=== PATIENT | female | born 1980 | race Caucasian/White ===

== ENCOUNTER 2017-05-17 09:25 | Emergency (ER) | payer BC ==
[2017-05-17 10:03] VITALS: BP 109/69
--- NOTE | 2017-05-17 10:39 | UC ---
UC General HPI - HPI Summary HPI Summary: pt c/o 2 days hx nausea, dry heaves, fever/chills, bodyaches, sore throat and congestion. no sob or abd pain. - History of Current Complaint Chief Complaint: UCGeneralIllness Stated Complaint: flu symptoms Time Seen by Provider: 05/17/17 10:18 Hx Obtained From: Patient Hx Last Menstrual Period: 05/11/17 Onset/Duration: Sudden Onset Pain Intensity: 4 Associated Signs & Symptoms: Positive: Cough, Fever, Headache, Vomiting. Negative: Diarrhea, Dysuria, SOB - Allergy/Home Medications Allergies/Adverse Reactions: Allergies Allergy/AdvReac Type Severity Reaction Status Date / Time erythromycin base Allergy Vomiting Verified 05/17/17 09:54 latex Allergy Unknown Verified 05/17/17 09:54 Reaction Details Home Medications: Home Medications Acetaminophen [Pain Relief] 500 mg PO 05/17/17 [History] Ibuprofen 600 mg PO 05/17/17 [History] Omeprazole 40 mg PO 05/17/17 [History] PMH/Surg Hx/FS Hx/Imm Hx GI/ History: Gastroesophageal Reflux - Surgical History Surgical History: Yes Surgery Procedure, Year, and Place: laparoscopy, right knee. BX LEFT BREAST. ABD LAPAROSCOPY - Family History Known Family History: Positive: None - Social History Lives: With Family Alcohol Use: Occasionally Substance Use Type: None Smoking Status (MU): Heavy Every Day Tobacco Smoker Type: Cigarettes Amount Used/How Often: 1/2PPD Length of Time of Smoking/Using Tobacco: 4-5 years Have You Smoked in the Last Year: No When Did the Patient Quit Smoking/Using Tobacco: 10 years Household Exposure Type: Cigarettes - Immunization History Vaccination Up to Date: Yes Review of Systems Constitutional: Fever, Chills, Fatigue Skin: Negative Eyes: Negative ENT: Sore Throat, Nasal Discharge Respiratory: Cough Cardiovascular: Negative Gastrointestinal: Vomiting, Nausea Genitourinary: Negative Motor: Negative Neurovascular: Negative Musculoskeletal: Myalgia Neurological: Negative Psychological: Negative Is Patient Immunocompromised?: No All Other Systems Reviewed And Are Negative: Yes Physical Exam Triage Information Reviewed: Yes Appearance: Ill-Appearing Vital Signs: Initial Vital Signs Temp 100.1 F 05/17/17 09:56 Pulse 79 05/17/17 09:56 Resp 16 05/17/17 09:56 BP 109/69 05/17/17 09:56 Pulse Ox 99 05/17/17 09:56 Vital Signs Reviewed: Yes Eyes: Positive: Conjunctiva Clear ENT: Positive: Pharyngeal erythema, TMs normal, Uvula midline. Negative: Nasal congestion, Nasal drainage, Tonsillar swelling, Tonsillar exudate, Trismus, Muffled voice Neck: Positive: Supple, Nontender, Enlarged Nodes @ - peritonsilar Respiratory: Positive: Lungs clear, Normal breath sounds, No respiratory distress Cardiovascular: Positive: RRR, No Murmur, Pulses Normal Abdomen Description: Positive: Nontender, No Organomegaly, Soft Bowel Sounds: Positive: Present Musculoskeletal: Positive: No Edema Neurological: Positive: Alert Psychological: Positive: Age Appropriate Behavior Skin Exam: Normal Diagnostics - Laboratory Diagnostic Studies Completed/Ordered: rapid strep=neg, flu B + Course/Dx - Course Course Of Treatment: Influenza B + thus will tx tamiflu - Differential Dx - Multi-Symptom Provider Diagnoses: Influenza B Discharge - Discharge Plan Condition: Stable Disposition: HOME Prescriptions: Oseltamivir Phosphate [Tamiflu] 75 mg PO BID 5 Days #10 capsule Patient Education Materials: Influenza (ED) Forms: *Work Release Additional Instructions: FOLLOW UP [facility] WITH YOUR DOCTOR IN 7 DAYS FOR A RECHECK OR SOONER IF WORSE.
== END 2017-05-17 11:37 | disposition home or self-care (01) ==
LOC: UCCORT 09:25
DX: J10.1 Influenza due to other identified influenza virus with other respiratory manifestations (principal); F17.210 Nicotine dependence, cigarettes, uncomplicated
CPT/HCPCS: 87502; 87651; 99212; G0463

== ENCOUNTER 2017-08-09 15:06 | Emergency (ER) | payer BC ==
[2017-08-09 20:24] LABS: ABS Basophils 0.1 10^3/ul (0-0.2); ABS Eosinophils 0.4 10^3/ul (0-0.6); ABS Lymphocytes 1.7 10^3/ul (1.0-4.8); ABS Monocytes 0.7 10^3/ul (0-0.8); ABS Neutrophils 6.1 10^3/ul (1.5-7.7); ABS Nucleated RBC 0 10^3/ul; Eosinophil % 4.2 % (0-6); Hematocrit 39 % (35-47); Hemoglobin 13.3 g/dl (12.0-16.0); Lymphocyte % 19.3 % (25-47); Mean Corpuscular HGB Conc 34 g/dl (31-36); Mean Corpuscular Hemoglobin 30 pg (27-31); Mean Corpuscular Volume 89 fL (80-97); Mean Platelet Volume 8.2 um3 (7.4-10.4); Nucleated Red Blood Cells % 0; Platelet Count 279 10^3/ul (150-450); Red Cell Distribution Width 13 % (10.5-15)
[2017-08-09 20:39] LABS: INR 1.02 (0.77-1.02)
[2017-08-09 20:45] LABS: EGFR Non-African American 106.3 (>60)
[2017-08-09] MEDS ORDERED: Iohexol 350* (CONTRAST) 500 ML MDV IV ONE (21:06)
--- NOTE | 2017-08-09 21:59 | RAD ---
INDICATION: Right-sided weakness COMPARISON: None TECHNIQUE: Axial source images were acquired with coronal and sagittal reconstructions. CT angiographic technique was utilized with injection of 80 mL Omnipaque 300. FINDINGS: Aortic arch: There are no CT angiogram abnormalities of the arch or the great vessels arising from the arch. Right carotid: The common carotid artery, carotid bifurcation, extracranial portions of the internal carotid artery, carotid artery at the skull base, carotid siphon, and carotid termination appear normal. Left carotid:The common carotid artery, carotid bifurcation, extracranial portions of the internal carotid artery, carotid artery at the skull base, carotid siphon, and carotid termination appear normal. Right middle and anterior cerebral arteries: There are no CT angiographic abnormalities of the middle or anterior cerebral arteries. Left middle and anterior cerebral arteries: There are no CT angiographic abnormalities of the middle or anterior cerebral arteries Right vertebral: The CT angiographic appearance of the vertebral artery is normal. Left vertebral: The CT angiographic appearance of the vertebral artery is normal. Basilar artery: The basilar artery and basilar tip appear normal. Posterior cerebral arteries: The distal distribution of the right and left posterior cerebral arteries is normal. [place]: The CT angiographic appearance of the [place] is normal. Source images show no evidence of mass or adenopathy within the neck. There are no focal brain parenchymal abnormalities or abnormal areas of enhancement. IMPRESSION: NO CT ANGIOGRAPHIC ABNORMALITIES CPT II Codes: 3100F RS
[2017-08-09 23:12] VITALS: BP 121/74
[2017-08-09 23:35] LABS: Urine Appearance Cloudy; Urine Blood 1+ (Negative); Urine Color Yellow; Urine Ketones 1+ (Negative); Urine Protein Negative (Negative); Urine Specific Gravity 1.017 (1.010-1.030); Urine Urobilinogen Negative (Negative)
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
== END 2017-08-09 23:11 | disposition home or self-care (01) ==
LOC: ED 15:06
DX: R53.1 Weakness (principal); R51 Headache; M54.2 Cervicalgia; F17.210 Nicotine dependence, cigarettes, uncomplicated; Z88.3 Allergy status to other anti-infective agents
CPT/HCPCS: 36415; 70496; 70498; 80053; 81003; 81015; 83605; 84484; 84702; 85025; 85610; 85730; 86618; 86850; 86900; 86901; 87086; 93005; 99283; Q9967

== ENCOUNTER 2017-08-12 12:01 | Observation (INO) | payer BC ==
[2017-08-12] MEDS ORDERED: Ibuprofen TAB* 600 MG PO PRN (13:32)
[2017-08-12] MEDS ORDERED: PROCHLORPERAZINE INJ 5 MG/ML 2 ML VIAL IV PRN (13:33)
[2017-08-12] MEDS ORDERED: Acetaminophen TAB* 325 MG PO PRN (13:33)
[2017-08-12] MEDS ORDERED: traMADol TAB* 50 MG PO PRN (13:37)
[2017-08-12 14:46] LABS: EGFR Non-African American 112.5 (>60)
[2017-08-12] MEDS ORDERED: Gadoteridol* (CONTRAST) 279.3 MG/ML 10 ML IV ONE (16:03)
--- NOTE | 2017-08-12 16:43 | HP ---
CC: Dr. Jaclyn Fairchild; Dr. Hartman.* HISTORY AND PHYSICAL: DATE OF ADMISSION: 08/12/17 TIME OF EVALUATION: 12:50 p.m. PRIMARY CARE PROVIDER: Dr. Jaclyn Fairchild. CONSULTING NEUROLOGIST: Dr. Hartman. CHIEF COMPLAINT: Right-sided weakness. 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 Hartman's office for direct admission for workup of right-sided weakness. The patient states that on Mother's Day (08/04/17) she woke up with a sensation of fullness on the right side of her face and mild tenderness that she attributed to seasonal allergies. This progressed during the day with the soreness spreading to her neck, shoulder, and right upper extremity, associated with tingling. She states that by the end of the day this had progressed to her right lower extremity and her foot was also tingling. She had no fever, no chills, and the next day she went to a chiropractor where she had adjustments made. She states that her low back pain improved a little, but the weakness and the numbness on the right side persisted. She went back to the chiropractor on 08/07/17 and as her symptoms persisted she then decided to go to her primary care provider and she was seen on 08/09/17. At that point , the patient felt this was not "a chiropractic issue" and as per her PCP's note and she was sent to the emergency room for further evaluation. Unfortunately, by the time the patient was seen it was too late for her to have an MRI. So she was discharged home to see Dr. Hartman today. She states that over the weekend the same symptoms started to develop on the left side but it did not involve her left leg. She also noticed some tremors on the right side. She denies fever, weight loss, urinary or bowel complaints. No bruising, no rashes. PAST MEDICAL HISTORY: 1. PCOS. 2. GERD. 3. Seasonal allergies. 4. Endometriosis. 5. Syncope, likely vasovagal. MEDICATIONS: 1. Acetaminophen 500 mg p.o. daily. 2. Cetirizine 10 mg p.o. daily. 3. Ibuprofen 600 mg p.o. q. 8 hours p.r.n. pain or fever. 4. Omeprazole 20 mg p.o. b.i.d. 5. Ondansetron 4 mg 1 to 2 tablets p.o. q. 6 hours p.r.n. nausea. ALLERGIES: No known drug allergies. FAMILY HISTORY: Father has BPH. Mother had breast cancer. She states that multiple family members on her mother's side have autoimmune disease including antiphospholipid syndrome, lupus, rheumatoid arthritis, and CVID. SOCIAL HISTORY: The patient is a smoker. Denies alcohol use. She works as a nurse. Surrogate decision maker is her mother Marlen Montero, phone number is [phone]. REVIEW OF SYSTEMS: A 14-point review of systems was performed and all the pertinent negatives and positives are in the HPI. PHYSICAL EXAMINATION GENERAL: The patient is a young lady lying in bed, in no acute distress. VITAL SIGNS: Heart rate 78, blood pressure 110/88, respiratory rate is 16. HEENT: Pupils are equal. Moist mucous membranes. CHEST: Breath sounds present bilaterally. No added sounds. CVS: Normal S1 and S2. Regular, rate, and rhythm. ABDOMEN: Soft, bowel sounds are present. EXTREMITIES: No edema. NEUROLOGIC: She is alert, awake, and oriented x3. She is able to move all 4 extremities. Face is symmetric with likely decreased sensation on the right. There is no pronator drift on either side. Sensation is diminished on both upper extremities and right lower extremity. [id number] and [id number] are negative. LABORATORY AND IMAGING DATA: On 08/09/17, the patient had a CBC that showed WBC 9 with hemoglobin 13.3, hematocrit 39, platelets 279 with 67% neutrophils, mild lymphopenia of 19%. INR was 1.0. APTT was 35. Chemistry showed sodium 138, potassium 3.8, chloride 105, bicarb 26, BUN 8, creatinine 0.6, glucose 91. LFTs were normal. Troponin was negative. HCG was negative. Urinalysis showed 1+ ketones, 1+ blood, trace LE, 2+ rbc's. Also of note, the patient was positive for influenza B in April 2017. CTA of the head was done on 08/09/17 during her ED visit and it showed no CT angiographic abnormalities. ASSESSMENT AND PLAN: 1. Ms. Huang is a 37-year-old lady with a past medical history of tobacco use, gastroesophageal reflux disease, seasonal allergies who was referred from Dr. Hartman's office for direct admission for workup of right-sided weakness and tingling; rule out multiple sclerosis. The patient will be admitted to the medical floor and her workup will include an MRI of the brain, cervical spine with and without contrast. Due to her family history of autoimmune diseases in her presentation she will also have an ELOISA, rheumatoid factor, anti-CCP, ANCA, sed rate, CRP, lyme serology as well as TSH, B12, and folate. As per Dr. Hartman' s recommendation we will give her Flexeril for muscle spasm and also tramadol for pain as just ibuprofen has not been effective. 2. DVT prophylaxis. The patient has a score of 0 in the DVT Prophylaxis Assessment Guide. She will have SCDs while in bed. 3. Code status is full. TIME SPENT: Approximately 60 minutes was spent with patient interview, medical records review, physical therapy to complete the admission. More than half this time was spent [id number] with the patient and coordination of care. [id number]/[facility] #: [id number] MTDFei
[2017-08-12] MEDS: Cyclobenzaprine TAB* 10 MG PO PRN (16:58)
[2017-08-12] MEDS: Omeprazole CAP* 20 MG PO SCH (20:49)
[2017-08-13] MEDS: Cyclobenzaprine TAB* 10 MG PO PRN (00:40)
--- NOTE | 2017-08-13 07:38 | RAD ---
HISTORY: Weakness, right arm and leg weakness, rule out multiple sclerosis COMPARISONS: January 06, 2016 TECHNIQUE: The following sequences were obtained of the head: Sagittal FLAIR images, axial T2-weighted images, axial FLAIR images, axial susceptibility weighted images, axial T1-weighted images. Additionally, axial diffusion-weighted images were obtained with calculated apparent diffusion coefficients. Additionally, sagittal, coronal, and axial T1-weighted images were obtained after contrast enhancement with a gadolinium-based intravenous contrast agent. FINDINGS: HEMORRHAGE/INFARCT: There is no hemorrhage or acute infarct. MASSES/SHIFT: There is no mass or shift. EXTRA-AXIAL SPACES/MENINGES: There are no extra-axial fluid collections. SULCI AND VENTRICLES: The sulci and ventricles are normal in size and position for the patient's stated age. CEREBRUM: There are no focal parenchymal abnormalities. BRAINSTEM: There are no focal parenchymal abnormalities. CEREBELLUM: There are no focal parenchymal abnormalities. The cerebellar tonsils are normal in size and position. SELLA: The sella is normal. PINEAL: The pineal region is clear. CP ANGLE/TEMPORAL BONES: The labyrinthine structures are grossly normal. VESSELS: Normal flow-voids are noted within the visualized vertebral vasculature. DIFFUSION ABNORMALITIES: There are no diffusion abnormalities. PARANASAL SINUSES/MASTOIDS: The paranasal sinuses are clear. ORBITS: The orbits are unremarkable. BONES AND SOFT TISSUE: No bone or soft tissue abnormalities are noted. OTHER: There is no abnormal enhancement. IMPRESSION: NORMAL BRAIN. NO ABNORMAL ENHANCEMENT.
--- NOTE | 2017-08-13 07:41 | RAD ---
HISTORY: Right arm and leg weakness, rule out multiple sclerosis COMPARISONS: None TECHNIQUE: The following sequences were obtained of the cervical spine: Sagittal and axial T1- and T2-weighted images, sagittal STIR images, and axial gradient echo images. Additionally, axial and sagittal T1 weighted images were obtained after contrast enhancement with a gadolinium-based intravenous contrast agent.. FINDINGS: BRAIN AND SPINAL CORD: The visualized spinal cord is normal in caliber, position, and signal intensity. The visualized portion of the brain is unremarkable. The cerebellar tonsils are normal in position. ALIGNMENT: The alignment is normal. VERTEBRAL BODIES: The bones are normal in signal intensity. JOINTS: There is no subluxation or dislocation. MUSCULATURE: Normal INTERVERTEBRAL DISCS: There is diffuse loss of intervertebral disc height and T2 signal throughout the spine. AXIAL IMAGES: C2-C3: There is no disc herniation, spinal stenosis, or neuroforaminal narrowing. C3-C4: There is no disc herniation, spinal stenosis, or neuroforaminal narrowing. C4-C5: There is no disc herniation, spinal stenosis, or neuroforaminal narrowing. C5-C6: There is a mild broad-based disc osteophyte complex. There is no significant neural foraminal narrowing or central canal stenosis. C6-C7: There is a small central disc protrusion versus posterior osteophyte measuring 0.2 cm in depth. There is no significant neural foraminal narrowing or central canal stenosis. C7-T1: There is no disc herniation, spinal stenosis, or neuroforaminal narrowing. SOFT TISSUES: The visualized soft tissues of the neck are unremarkable. OTHER: There is no abnormal enhancement. IMPRESSION: 1. NO ABNORMAL CORD SIGNAL OR ABNORMAL ENHANCEMENT. 2. MINIMAL DEGENERATIVE DISC DISEASE. 3. NO SIGNIFICANT NEURAL FORAMINAL NARROWING OR CENTRAL CANAL STENOSIS.
[2017-08-13] MEDS: Omeprazole CAP* 20 MG PO SCH (08:33)
[2017-08-13] MEDS ORDERED: Cetirizine* 10 MG TAB PO SCH (09:00)
[2017-08-13 11:31] VITALS: BP 95/54
[2017-08-13] MEDS ORDERED: Cyanocobalamin TAB* 500 MCG PO SCH (13:00)
--- NOTE | 2017-08-14 08:10 | PN ---
CC: [facility], Dr. Jaclyn Fairchild * PROGRESS NOTE: DATE OF FOLLOWUP: 08/13/17 HISTORY: Overnight, the patient got her brain and C-spine MRI as well as some initial blood work results. She reports the Flexeril helped the stiffness in her neck and arm somewhat, but she did not try the tramadol. She continues to feel weakness on her right side as well as have tremors in her right hand and some numbness in her left hand as well. Her B12 level came back quite low at 154. MEDICATIONS: 1. Tylenol 650 q.6 p.r.n. 2. Cetirizine 10 mg daily. 3. Flexeril 10 mg p.o. t.i.d. p.r.n. 4. Ibuprofen 600 mg q.8 p.r.n. 5. Omeprazole 20 mg b.i.d. 6. Tramadol 50 mg q.6 p.r.n., which has not been used. PHYSICAL EXAMINATION: Vital Signs: Temperature 98.1, blood pressure 95/54, heart rate 70, oxygen saturation 95% on room air. On general exam, she is in no acute distress. Heart is in a regular rate and rhythm. Lungs are clear to auscultation bilaterally. On neurologic exam, she is awake, alert, and oriented. Her speech is fluent without dysarthria or aphasia. Her versions are full without nystagmus. Thompson are full to confrontation. Facial sensation and musculature is full and symmetric. Palate elevates symmetrically and the tongue is midline. On motor examination, she has some give-away weakness in the right arm and leg. Full strength in the left arm and leg. There is an intermittent action tremor, also somewhat of a rest component, which is somewhat distractible and irregular and somewhat jerky appearing. Reflexes are 2+ in the upper extremities and lower extremities with downgoing toes. Finger- to-nose is intact without ataxia. LABORATORY DATA: Her sed rate was 17. B12 level 154 as mentioned, folate 7.33 , TSH 0.79, CRP 1.74. Rheumatoid factor negative. ELOISA and CCP are pending. Proteinase 3 and myeloperoxidase antibodies were negative. Lyme serology is pending. I personally reviewed her MRI of the brain as well as her cervical spine MRI, which showed no evidence of demyelinating disease. There were no enhancing lesions. There is minimal degenerative disk disease noted with no significant neural foraminal stenosis or spinal stenosis. IMPRESSION: A 37-year-old woman with progressive tremors on the right side, pain in the right arm and leg as well as a sense of weakness in the right arm and leg, which had progressed over about a week's time. She was admitted for concern for possible acute demyelinating disease. Thankfully, her MRI scans are clean. However, she has been found to be vitamin B12 deficient, was given 1000 mcg today, and instructed to continue 1000 mcg daily. Her B12 level should be rechecked as an outpatient by the primary care provider, perhaps in 4 to 6 weeks. She has some other testing pending as noted above, which should be followed up. I discussed with her that it is difficult to ascribe all of her difficulties to B12 deficiency, but it certainly does need to be replaced. She will also continue with Flexeril and/or tramadol as needed for muscle stiffness and pain and if this continue may benefit from referral to physical therapy as an outpatient. I also discussed with her that if anything worsens in terms of her neurologic function on the right side, we could obtain nerve conduction studies as an outpatient, though I also discussed with her that her symptoms are not fitting with a peripheral nerve process well. I will contact my office to have her schedule for follow-up visit with me in about a month, but she knows to call me sooner with any problems. She will be discharged today. [id number]/[facility] #: [id number] JACKIE
--- NOTE | 2017-08-14 12:36 | DS ---
CC: Dr. Jaclyn Fairchild.* DISCHARGE SUMMARY: DATE OF ADMISSION: 08/12/17 DATE OF DISCHARGE: 08/13/17 PRIMARY CARE PROVIDER: Dr. Jaclyn Faicrhild. PRINCIPAL DIAGNOSIS: Right-sided weakness and paresthesias of unclear etiology. SECONDARY DIAGNOSES: 1. Polycystic ovarian syndrome. 2. Vitamin B12 deficiency. 3. Gastroesophageal reflux disease. 4. Seasonal allergies. 5. Endometriosis. DISCHARGE MEDICATIONS: 1. Tylenol 500 mg p.o. daily. 2. Zofran 4 mg, 1 to 2 tabs p.o. q.6 hours p.r.n. nausea. 3. Prilosec 20 mg p.o. b.i.d. 4. Ibuprofen 600 mg p.o. q.8 hours p.r.n. pain. 5. Cetirizine 10 mg p.o. daily. 6. Tramadol 50 mg p.o. q.6 hours p.r.n. pain, dispensed 20 tablets. 7. Flexeril 10 mg p.o. t.i.d. p.r.n. spasm (dispensed 30 tablets). 8. Vitamin B12 100 mcg p.o. daily. HOSPITAL COURSE: Ms. Huang is a 37-year-old female who on Mother's Day noted right-sided weakness and paresthesias of the right arm and leg. The patient states the symptoms in the right arm are worse than the right leg. She saw her primary care provider and was referred to the emergency room. Unfortunately, when she arrived to the emergency room, it was too late to obtain an MRI. So she was discharged home. She was referred to Dr. Hartman whom she saw on . Dr. Hartman then had her admitted to the hospital for evaluation. The patient did undergo cervical spine and brain MRI, which revealed no abnormal enhancement. No significant foraminal narrowing was noted nor was any canal stenosis noted. The patient also had lab work obtained which revealed a mildly elevated ESR of 17, a B12 level of 154. The patient was discharged before these following lab results returned including rheumatoid factor that was negative. CCP IgG negative. Myeloperoxidase antibody negative and PR3 negative , so as Lyme disease serology being negative. Her ELOISA is still pending. The patient's symptoms were felt to be possibly related to vitamin B12 deficiency and therefore she was started on 1000 mcg p.o. daily. On exam, the patient did have some concerning features; however, her exam was at times functional. The patient will continue on B12 supplementation. She will need to follow up with Dr. Hartman in approximately 1 month. On the day of discharge, the patient is awake, alert and oriented, sitting up in bed, in no acute distress. Her cardiac exam reveals a normal S1, S2 with a regular rate and rhythm. No extremity edema is noted. Lungs are clear to auscultation bilaterally. Abdomen is soft, nontender, nondistended. Her neurologic exam reveals twitching of the right upper extremity which at times appears to be distractible. She does have significant weakness of the right upper extremity which seems slightly functional in nature. The right upper extremity weakness is greater than the right lower extremity weakness. At this point however the patient is felt to be stable for discharge home. FOLLOWUP CONCERNS: The patient is being discharged home today 08/13/17. ACTIVITY LEVEL: As tolerated. DIET: Regular. CONDITION ON DISCHARGE: Stable. The patient is to follow up with Dr. Fairchild in the next 4 to [address] Hartman in approximately 1 month. TIME SPENT: 35 minutes was spent discharging this patient. [id number]/[facility] #: [id number] MTDD
== END 2017-08-13 13:25 | disposition home or self-care (01) ==
LOC: MEDTELE 12:27 → SSU 12:29
PROVIDERS: ADMIT Internal Medicine; ATTEND Hospitalist
DX: R53.1 Weakness (principal); R20.2 Paresthesia of skin; E28.2 Polycystic ovarian syndrome; E53.8 Deficiency of other specified B group vitamins; K21.9 Gastro-esophageal reflux disease without esophagitis; J30.2 Other seasonal allergic rhinitis; N80.9 Endometriosis, unspecified; Z87.891 Personal history of nicotine dependence
CPT/HCPCS: 36415; 70553; 72156; 80048; 82607; 82746; 83516; 84443; 85652; 86038; 86140; 86200; 86431; 86618; A9270-GY; A9579; G0378